=== PATIENT | female | born 2005 | race Caucasian/White ===

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

== ENCOUNTER 2025-05-01 23:16 | Emergency (ER) | payer BC ==
[2025-05-02 00:17] LABS: Glucose, Urine (Dipstick) Normal (Negative); Leukocyte Negative (Negative); Protein, Urine (Dipstick) 30 mg/dl (Neg-Trace); Specific Gravity, Urine 1.025 (1.005-1.030)
[2025-05-02 00:20] LABS: Pregnancy Test - Urine (BHCG) Negative (Negative); Pregu Control Background? CLEAR/WHITE (CLR/WHITE); Pregu Control Bar Appear? YES (CONTROL BAR)
[2025-05-02 00:23] LABS: Bacteria/HPF 1+ HPF (None Seen); CAUTI Indications for Culture Acute Hematuria; RBC/HPF Greater than 50 HPF (0-3); Urine Culture Reflex No No; WBC/HPF 0-3 HPF (0-3)
== END 2025-05-02 01:40 | disposition home or self-care (01) ==
LOC: CSHERS 23:16
DX: R00.2 Palpitations (principal); F41.9 Anxiety disorder, unspecified; N92.0 Excessive and frequent menstruation with regular cycle
CPT/HCPCS: 81001; 81025; 93005; 99285